=== PATIENT | male | born 1945 | race Caucasian/White ===

== ENCOUNTER → 2019-04-28 09:26 | Outpatient (CLI) | payer OTHER, SELFPAY ==
--- NOTE | 2019-04-28 09:34 | DI.CT.S_ITS ---
PROCEDURE: CT CHEST WO CON INDICATIONS: COUGH TECHNIQUE: Noncontrast 5 mm thick sections acquired from the pulmonary apices to the posterior costophrenic angles. 7 mm thick coronal and sagittal MIP reformats were then acquired. For radiation dose reduction, the following was used: automated exposure control, adjustment of mA and/or kV according to patient size. COMPARISON: None. FINDINGS: Image quality: Excellent. Lungs and pleura: Dense consolidative radiopacities are present within the left upper lobe, the lingula, and the posterior, dependent aspect of the left lower lobe. There is bronchiectasis and cystic dilatation of the peripheral airways in the left upper lobe. Multiple subcentimeter focal pulmonary radiopacities with peripheral groundglass opacities are present within the right upper lobe and right lower lobe. Mediastinum: Heart size is normal. No pericardial effusion. No mediastinal adenopathy by size criteria. Thoracic aorta and central pulmonary arteries are normal in size. Scattered atheromatous calcifications are present within the aortic arch. Esophagus is normal in caliber. No hiatal hernia. Bones and chest wall: No suspicious bony lesions. Moderate degenerative changes are present throughout the thoracic spine. No vertebral body compression fractures. No axillary or supraclavicular adenopathy by size criteria. Thyroid gland is unremarkable. Abdomen: Visualized upper abdominal solid organs and bowel loops appear normal in the absence of contrast. IMPRESSION: 1. Multifocal consolidative radiopacities throughout the left lung and focal subcentimeter air space opacities within the right lung as described above most consistent with multifocal pneumonia. 2. Cystic, bronchiectatic airways within the left upper lobe suggesting either a chronic infectious process versus necrotic lung. Dictated by: Chloé Patel M.D. on 04/28/2019 at 11:16 Approved by: Chloé Patel M.D. on 04/28/2019 at 11:25
--- NOTE | 2019-05-09 08:47 | PM.PFT.1 ---
Pulmonary Function Test Referral & Results Date Patient Seen: 04/28/19 Requesting provider: Shabnam Mesa Results: The spirometry demonstrates an FVC of 2.22 L which is 60% of predicted. The FEV1 was measured at 1.74 L which is 64% of predicted. The FEV1/FVC ratio was 79 which is 107% of predicted. Following the administration of bronchodilator there was a 60% improvement in FEF 25-75%. Lung volumes show an SVC of 2.09 L which is 52% of predicted. The diffusing capacity was measured at 18.64 which is 69% of predicted. No hemoglobin value was provided, so no correction for potential anemia could be made, if appropriate. The maximum voluntary ventilation was reduced slightly Interpretation: This study demonstrates mild to moderate obstructive lung disease based our reduction FEV1. There is evidence of limited benefit following bronchodilator primarily in small airway flow based on improvement in FEF 25-75% There is more significant reduction in lung volumes suggesting more significant restrictive lung disease There is also mild reduction in diffusing capacity suggesting an element of disease the capillary alveolar level Altogether with patient's excessive restrictive lung disease and only mild obstructive lung disease this is more consistent with a diagnosis of something such as interstitial fibrosis Clinical correlation suggested
== END ==
PROVIDERS: Visit Provider Specialist
DX: R05 Cough (principal); R06.00 Dyspnea, unspecified; R06.2 Wheezing
CPT/HCPCS: 71250; 94060; 94726; 94729